=== PATIENT | female | born 1990 | race Caucasian/White ===

== ENCOUNTER 2018-08-05 16:34 | Inpatient (IN) | payer MEDICAID ==
[~2018-08-05] VITALS: Ht 167.6 cm; Wt 120.7 kg
[2018-08-05] MEDS ORDERED: OXYTOCIN 10 UNITS/ML VIAL IM SCH (17:15)
[2018-08-05] MEDS ORDERED: NALBUPHINE 10 MG/ML AMP IVP PRN ×2 (17:15→20:00)
[2018-08-05] MEDS ORDERED: PROMETHAZINE 25 MG/ML VIAL IVP PRN (17:15)
[2018-08-05] MEDS ORDERED: METHYLERGONOVINE 0.2 MG/ML AMP IM PRN (17:15)
[2018-08-05] MEDS ORDERED: CARBOPROST 250 MCG/ML AMP IM PRN (17:15)
[2018-08-05] MEDS ORDERED: VITA1TAB44 PO (17:20)
[2018-08-05] MEDS ORDERED: PREN-380 PO (17:20)
[2018-08-05] MEDS ORDERED: NIFE10SG6 (17:20)
[2018-08-05] MEDS ORDERED: TRA200 PO (17:20)
[2018-08-05] MEDS ORDERED: FERR325E14 PO (17:20)
[2018-08-05 17:31] VITALS: BP 141/86
[2018-08-05 18:11] LABS: BASOPHILS % (AUTO) 0.2 % (0.0-2.0); EOSINOPHILS # (AUTO) 0.1 K/uL (0-0.4); EOSINOPHILS % (AUTO) 1.4 % (0.0-4.0); HEMATOCRIT 32.7 % (36-48); HEMOGLOBIN 11.3 g/dL (12.0-16.0); LYMPHOCYTES # (AUTO) 1.9 K/uL (2.5-16.5); LYMPHOCYTES % (AUTO) 23.9 % (20.5-51.1); MEAN CORPUSCULAR HEMOGLOBIN 31 pg (27-31); MEAN CORPUSCULAR HGB CONC 35 g/dL (33-37); MEAN CORPUSCULAR VOLUME 88.3 fL (80-94); MONOCYTES # (AUTO) 0.7 K/uL (0.8-1.0); MONOCYTES % (AUTO) 8.7 % (1.7-9.3); NEUTROPHILS # (AUTO) 5.3 K/uL (1.8-7.7); NEUTROPHILS % (AUTO) 65.8 % (42.2-75.2); PLATELET COUNT (AUTO) 267 K/uL (140-450)
[2018-08-05 18:15] LABS: APPEARANCE,URINE CLEAR (CLEAR); BILIRUBIN,URINE NEGATIVE (NEGATIVE); BLOOD, URINE NEGATIVE (NEGATIVE); COLOR,URINE YELLOW (YELLOW); LEUKOCYTE ESTERASE ,URINE NEGATIVE (NEGATIVE); NITRITE, URINE NEGATIVE (NEGATIVE); UGLUCOSE NEGATIVE (NEGATIVE)
[2018-08-05 18:33] LABS: ALBUMIN 2.5 g/dL (3.4-5.0); ANION GAP 12.5 (8-16); CARBON DIOXIDE 26.6 mmol/L (21-32); CREATININE 0.5 mg/dL (0.6-1.3); POTASSIUM 4.1 mmol/L (3.5-5.1); TOTAL BILIRUBIN 0.2 mg/dL (0.0-1.0)
[2018-08-05] MEDS: LACTATED RINGERS 1,000 ML IV SCH (19:01)
[2018-08-05] MEDS ORDERED: MISOPROSTOL 25 MCG TAB ONE (19:26)
[2018-08-05] MEDS ORDERED: MISOPROSTOL 25 MCG TAB VG ONE (20:00)
[2018-08-05] MEDS ORDERED: MISOPROSTOL 25 MCG TAB VG SCH (20:00)
[2018-08-05] MEDS: LABETALOL 200 MG TAB PO SCH (20:59)
[2018-08-05] MEDS ORDERED: NIFEdipine 10 MG CAPLF PO SCH (21:00)
[2018-08-05] MEDS ORDERED: LABETALOL 200 MG TAB ONE (21:02)
[2018-08-06] MEDS ORDERED: NIFEdipine 10 MG CAPLF ONE ×3 (01:01→19:17)
[2018-08-06] MEDS: NIFEdipine 10 MG CAPLF PO SCH (03:00)
[2018-08-06] MEDS ORDERED: OXYTOCIN 20 UNITS/LR PREMIX 1,000 ML IV ONE (03:53)
[2018-08-06] MEDS: LACTATED RINGERS 1,000 ML IV SCH ×3 (06:17→21:44)
[2018-08-06] MEDS ORDERED: LABETALOL 200 MG TAB ONE ×2 (09:05→21:03)
[2018-08-06] MEDS ORDERED: NIFEdipine 10 MG CAPLF PO SCH (19:45)
[2018-08-06] MEDS: LABETALOL 200 MG TAB PO SCH (21:01)
[2018-08-06] MEDS ORDERED: MISOPROSTOL 25 MCG TAB ONE (21:02)
[2018-08-07] MEDS: NIFEdipine 10 MG CAPLF PO SCH ×2 (02:07→18:16)
[2018-08-07] MEDS ORDERED: NIFEdipine 10 MG CAPLF ONE ×2 (03:04→18:17)
[2018-08-07] MEDS: OXYTOCIN 20 UNITS in LACTATED RINGERS 1,000 ML IV SCH (03:53)
[2018-08-07] MEDS ORDERED: NALBUPHINE 10 MG/ML AMP ONE (08:14)
[2018-08-07] MEDS ORDERED: PROMETHAZINE 25 MG/ML VIAL ONE (08:14)
[2018-08-07] MEDS ORDERED: LABETALOL 100 MG/20 ML VIAL IV SCH (08:30)
[2018-08-07] MEDS ORDERED: LABETALOL 100 MG/20 ML VIAL ONE (08:37)
[2018-08-07] MEDS ORDERED: ROPIVACAINE 0.2%/NS PREMIX 250 ML EPI ONE (08:51)
--- NOTE | 2018-08-07 09:18 | NUR ---
PATIENT HAS BEEN SCREENED AND CATEGORIZED LOW NUTRITION RISK. PATIENT WILL BE SEEN WITHIN 7 DAYS OF ADMISSION. 08/12/18 BEN PEACE MBA, RD
[2018-08-07] MEDS ORDERED: MAG SULF 2000 MG/WATER PREMIX 100 ML IV ONE (10:25)
[2018-08-07] MEDS: MAGNESIUM SULFATE 4GM in STERILE WATER 100 ML PREMIX IV SCH ×2 (10:45→10:47)
[2018-08-07] MEDS: MAG SULF 20 GM/H2O PREMIX DRIP 500 ML IV SCH ×2 (12:12→22:57)
[2018-08-07] MEDS ORDERED: MAG SULF 20 GM/H2O PREMIX DRIP 500 ML IV ONE ×2 (12:13→22:41)
[2018-08-07] MEDS ORDERED: LIDOCAINE 2% 1000 MG/50 ML VIAL INJ ONE (14:25)
[2018-08-07] MEDS ORDERED: OXYTOCIN 10 UNITS/ML VIAL ONE (14:25)
[2018-08-07] MEDS ORDERED: CARBOPROST 250 MCG/ML AMP IM ONE (15:16)
[2018-08-07] MEDS ORDERED: OXYTOCIN 20 UNITS in LACTATED RINGERS 1,000 ML IV SCH (16:18)
[2018-08-07] MEDS ORDERED: MEASLES, MUMPS, AND RUBELLA 1 VIAL SQVAC PRN (16:20)
[2018-08-07] MEDS ORDERED: BENZOCAINE/MENTHOL 20%-0.5% 60 GM CAN TP PRN (16:20)
[2018-08-07] MEDS ORDERED: ACETAMINOPHEN 325 MG TAB ONE (17:15)
[2018-08-07] MEDS: LABETALOL 200 MG TAB PO SCH (21:04)
[2018-08-07] MEDS ORDERED: LABETALOL 200 MG TAB ONE (21:06)
[2018-08-08] MEDS ORDERED: NIFEdipine 10 MG CAPLF ONE ×2 (02:07→09:02)
[2018-08-08] MEDS ORDERED: OXYTOCIN 20 UNITS/LR PREMIX 1,000 ML IV ONE (05:28)
[2018-08-08] MEDS: OXYTOCIN 20 UNITS in LACTATED RINGERS 1,000 ML IV SCH (07:11)
[2018-08-08 08:41] LABS: BASOPHILS # (AUTO) 0.1 K/uL (0.00-0.22); BASOPHILS % (AUTO) 0.8 % (0.0-2.0); EOSINOPHILS # (AUTO) 0.1 K/uL (0-0.4); EOSINOPHILS % (AUTO) 0.9 % (0.0-4.0); HEMATOCRIT 34.9 % (36-48); HEMOGLOBIN 11.7 g/dL (12.0-16.0); LYMPHOCYTES # (AUTO) 1.6 K/uL (2.5-16.5); LYMPHOCYTES % (AUTO) 14.2 % (20.5-51.1); MEAN CORPUSCULAR HEMOGLOBIN 30 pg (27-31); MEAN CORPUSCULAR HGB CONC 34 g/dL (33-37); MEAN CORPUSCULAR VOLUME 88.7 fL (80-94); MONOCYTES # (AUTO) 0.6 K/uL (0.8-1.0); MONOCYTES % (AUTO) 5.3 % (1.7-9.3); NEUTROPHILS # (AUTO) 8.8 K/uL (1.8-7.7); NEUTROPHILS % (AUTO) 78.8 % (42.2-75.2); PLATELET COUNT (AUTO) 241 K/uL (140-450); RED BLOOD CELL COUNT(AUTO) 3.94 MIL/uL (4.20-5.40); RED CELL DISTRIBUTION WIDTH 15.2 % (11.6-13.7); WHITE BLOOD COUNT (AUTO) 11.2 K/uL (4.8-10.8)
[2018-08-08] MEDS: LABETALOL 200 MG TAB PO SCH ×2 (08:49→20:49)
[2018-08-08] MEDS ORDERED: LABETALOL 200 MG TAB ONE (08:52)
[2018-08-08] MEDS ORDERED: MAG SULF 20 GM/H2O PREMIX DRIP 500 ML IV ONE (08:52)
[2018-08-08] MEDS: MAG SULF 20 GM/H2O PREMIX DRIP 500 ML IV SCH (08:54)
[2018-08-08] MEDS: NIFEdipine 10 MG CAPLF PO SCH ×2 (10:23→18:21)
[2018-08-08] MEDS: DOCUSATE SODIUM 100 MG GELCAP PO PRN (20:49)
[2018-08-09] MEDS: NIFEdipine 10 MG CAPLF PO SCH ×2 (02:24→10:54)
[2018-08-09] MEDS: ACETAMINOPHEN 325 MG TAB PO PRN ×2 (04:43→10:55)
[2018-08-09] MEDS: DOCUSATE SODIUM 100 MG GELCAP PO PRN (09:14)
[2018-08-09] MEDS: LABETALOL 200 MG TAB PO SCH (09:15)
[2018-08-09] MEDS ORDERED: NIFEdipine 10 MG CAPLF ONE (18:38)
== END 2018-08-09 20:00 | disposition home or self-care (01) | DRG 560 ==
LOC: MLD 16:34 → UNDOADMIN 16:34 → MLD 16:35 → MFCC 17:17 → MLD 08-08 15:25 → UNDODISIN 08-09 16:20 → MFCC 08-09 17:17 → UNDOADMIN 08-09 17:17 → UNDODISIN 08-09 20:00
PROVIDERS: ADMIT Obstetrics & Gynecology; ATTEND Obstetrics & Gynecology
PROC: 10E0XZZ Delivery of Products of Conception, External Approach (ICD-10-PCS; principal; 2018-08-07)
PROC: 10907ZC Drainage of Amniotic Fluid, Therapeutic from Products of Conception, Via Natural or Artificial Opening (ICD-10-PCS; 2018-08-07)
PROC: 0UQMXZZ Repair Vulva, External Approach (ICD-10-PCS; 2018-08-07)
PROC: 00HU33Z Insertion of Infusion Device into Spinal Canal, Percutaneous Approach (ICD-10-PCS; 2018-08-07)
PROC: 3E0R3BZ Introduction of Anesthetic Agent into Spinal Canal, Percutaneous Approach (ICD-10-PCS; 2018-08-07)
PROC: 3E0234Z Introduction of Serum, Toxoid and Vaccine into Muscle, Percutaneous Approach (ICD-10-PCS; 2018-08-09)
PROC: 3E0234Z Introduction of Serum, Toxoid and Vaccine into Muscle, Percutaneous Approach (ICD-10-PCS; 2018-08-09)
DX: O11.4 Pre-existing hypertension with pre-eclampsia, complicating childbirth (principal); O69.89X0 Labor and delivery complicated by other cord complications, not applicable or unspecified; Z37.0 Single live birth; O10.92 Unspecified pre-existing hypertension complicating childbirth; O71.82 Other specified trauma to perineum and vulva; Z3A.39 39 weeks gestation of pregnancy; Z23 Encounter for immunization
CPT/HCPCS: 36415; 51702; 59200; 59409; 76805; 80053; 81003; 83735; 85025; 86592; 86886; 86900; 86901; 90707; 90715; J2001; J2300; J2550; J2590; J2795; J3475; J3490; J7120; Q0092

== ENCOUNTER 2019-09-04 18:00 | Inpatient (IN) | payer OTHER ==
[~2019-09-04] VITALS: Ht 167.6 cm; Wt 119.7 kg
[~2019-09-04 18:00] MED LIST: FERR325E14 PO; PREN-380 PO; VITA1TAB44 PO
[2019-09-04] MEDS ORDERED: diphenhydrAMINE 50 MG CAP PO SCH (20:40)
[2019-09-04 20:43] VITALS: BP 138/87
[2019-09-04] MEDS ORDERED: diphenhydrAMINE 50 MG CAP PO ONE (22:53)
--- NOTE | 2019-09-05 08:23 | NUR ---
PATIENT HAS BEEN SCREENED AND CATEGORIZED LOW NUTRITION RISK. PATIENT WILL BE SEEN WITHIN 7 DAYS OF ADMISSION. 09/11/[address]
[2019-09-05] MEDS ORDERED: FAMOTIDINE 20 MG TAB PO SCH (10:26)
[2019-09-05] MEDS ORDERED: LABETALOL 100 MG TAB PO SCH ×2 (12:26→21:00)
[2019-09-05] MEDS ORDERED: LABETALOL 100 MG TAB ONE ×2 (12:38→13:30)
[2019-09-05] MEDS ORDERED: ACETAMINOPHEN 325 MG TAB PO PRN (21:10)
[2019-09-05] MEDS ORDERED: ACETAMINOPHEN 325 MG TAB ONE (21:16)
[2019-09-06] MEDS ORDERED: BETAMETH ACET/BETAMETH NA PH 30 MG/5 ML VIAL IM ONE ×2 (02:22→15:10)
[2019-09-06] MEDS ORDERED: BETAMETH ACET/BETAMETH NA PH 30 MG/5 ML VIAL IM SCH (03:00)
[2019-09-06 06:46] VITALS: BP 122/73
[2019-09-06] MEDS ORDERED: LABETALOL 100 MG TAB PO SCH (09:00)
[2019-09-06] MEDS ORDERED: FAMOTIDINE 20 MG TAB PO SCH (09:00)
[2019-09-06] MEDS ORDERED: LABETALOL 200 MG TAB ONE ×2 (09:38→21:01)
[2019-09-06] MEDS: LABETALOL 200 MG TAB PO SCH ×2 (09:47→21:07)
[2019-09-06] MEDS: LEVOTHYROXINE 0.075 MG TAB PO SCH (10:13)
[2019-09-06] MEDS ORDERED: SODIUM PHOSPHATE 118 ML ENEM RC PRN (13:55)
[2019-09-07] MEDS ORDERED: LEVOTHYROXINE 0.075 MG TAB PO SCH (06:30)
[2019-09-07 07:30] VITALS: BP 132/75
[2019-09-07] MEDS: LEVOTHYROXINE 0.075 MG TAB PO SCH (07:50)
[2019-09-07] MEDS ORDERED: LABETALOL 200 MG TAB ONE ×2 (09:08→21:12)
[2019-09-07] MEDS: FAMOTIDINE 20 MG TAB PO SCH (09:14)
[2019-09-07] MEDS: LABETALOL 200 MG TAB PO SCH ×2 (09:15→21:14)
[2019-09-07] MEDS ORDERED: LACTATED RINGERS 1,000 ML IV SCH (15:58)
[2019-09-07] MEDS ORDERED: OXYTOCIN 20 UNITS in LACTATED RINGERS 1,000 ML IV SCH (15:58)
[2019-09-07] MEDS ORDERED: MISOPROSTOL 25 MCG TAB VG SCH (16:13)
[2019-09-07 16:59] LABS: BASOPHILS % (AUTO) 0.1 % (0.0-2.0); EOSINOPHILS % (AUTO) 0.1 % (0.0-4.0); HEMATOCRIT 31.9 % (36-48); HEMOGLOBIN 10.9 g/dL (12.0-16.0); LYMPHOCYTES # (AUTO) 1.9 K/uL (2.5-16.5); LYMPHOCYTES % (AUTO) 17.4 % (20.5-51.1); MEAN CORPUSCULAR HEMOGLOBIN 31 pg (27-31); MEAN CORPUSCULAR HGB CONC 34 g/dL (33-37); MEAN CORPUSCULAR VOLUME 90.9 fL (80-94); MONOCYTES # (AUTO) 0.7 K/uL (0.8-1.0); MONOCYTES % (AUTO) 6.8 % (1.7-9.3); NEUTROPHILS % (AUTO) 75.6 % (42.2-75.2); PLATELET COUNT (AUTO) 231 K/uL (140-450); RED CELL DISTRIBUTION WIDTH 14.6 % (11.6-13.7); WHITE BLOOD COUNT (AUTO) 10.6 K/uL (4.8-10.8)
[2019-09-07 17:45] LABS: ALBUMIN 2.4 g/dL (3.4-5.0); ANION GAP 13.5 (8-16); CARBON DIOXIDE 23.3 mmol/L (21-32); CREATININE 0.5 mg/dL (0.6-1.3); POTASSIUM 3.8 mmol/L (3.5-5.1); TOTAL BILIRUBIN 0.2 mg/dL (0.0-1.0)
[2019-09-07 19:18] LABS: APPEARANCE,URINE CLEAR (CLEAR); BILIRUBIN,URINE NEGATIVE (NEGATIVE); BLOOD, URINE NEGATIVE (NEGATIVE); COLOR,URINE YELLOW (YELLOW); LEUKOCYTE ESTERASE ,URINE NEGATIVE (NEGATIVE); NITRITE, URINE NEGATIVE (NEGATIVE); UGLUCOSE NEGATIVE (NEGATIVE)
[2019-09-07] MEDS ORDERED: MISOPROSTOL 25 MCG TAB ONE (19:21)
[2019-09-08] MEDS ORDERED: NALBUPHINE 10 MG/ML AMP ONE ×3 (00:45→07:58)
[2019-09-08] MEDS: NALBUPHINE 10 MG/ML AMP IVP PRN ×3 (00:48→08:06)
[2019-09-08] MEDS ORDERED: OXYTOCIN 20 UNITS/LR PREMIX 2,000 ML IV ONE (03:52)
[2019-09-08] MEDS: LEVOTHYROXINE 0.075 MG TAB PO SCH (06:30)
[2019-09-08] MEDS ORDERED: ROPIVACAINE 0.2%/NS PREMIX 100 ML EPI ONE (07:31)
[2019-09-08] MEDS ORDERED: OXYTOCIN 10 UNITS/ML VIAL ONE (07:40)
[2019-09-08] MEDS ORDERED: LIDOCAINE 1% 500 MG/50 ML VIAL ONE (07:44)
[2019-09-08] MEDS: MAG SULF 2000 MG/WATER PREMIX 100 ML IV SCH ×2 (08:00→09:02)
[2019-09-08] MEDS ORDERED: MAG SULF 20 GM/H2O PREMIX DRIP 500 ML IV SCH (08:00)
[2019-09-08] MEDS ORDERED: LABETALOL 100 MG/20 ML VIAL IV PRN (08:20)
[2019-09-08] MEDS ORDERED: LABETALOL 100 MG/20 ML VIAL ONE (08:29)
[2019-09-08] MEDS ORDERED: NALOXONE 0.4 MG/ML VIAL ONE (08:48)
[2019-09-08] MEDS ORDERED: MAG SULF 20 GM/H2O PREMIX DRIP 500 ML IV ONE (08:56)
[2019-09-08] MEDS ORDERED: LABETALOL 200 MG TAB ONE ×2 (09:06→21:08)
[2019-09-08] MEDS ORDERED: OXYTOCIN 20 UNITS in LACTATED RINGERS 1,000 ML IV SCH (09:18)
[2019-09-08] MEDS ORDERED: BISACODYL 5 MG TABEC PO PRN (09:20)
[2019-09-08] MEDS ORDERED: DOCUSATE SODIUM 100 MG GELCAP PO PRN (09:20)
[2019-09-08] MEDS ORDERED: MEASLES, MUMPS, AND RUBELLA 1 VIAL SQVAC PRN (09:20)
[2019-09-08] MEDS ORDERED: ACETAMINOPHEN 325 MG TAB PO PRN (09:20)
[2019-09-08] MEDS: FAMOTIDINE 20 MG TAB PO SCH (09:26)
[2019-09-08] MEDS: IBUPROFEN 600 MG TAB PO PRN (15:10)
[2019-09-08] MEDS ORDERED: LABETALOL 200 MG TAB PO SCH (21:00)
[2019-09-08] MEDS: LABETALOL 200 MG TAB PO SCH (21:11)
[2019-09-09] MEDS: IBUPROFEN 600 MG TAB PO PRN (02:55)
[2019-09-09] MEDS ORDERED: LEVOTHYROXINE 0.075 MG TAB PO SCH (06:30)
[2019-09-09] MEDS: LEVOTHYROXINE 0.075 MG TAB PO SCH (08:06)
[2019-09-09 08:44] LABS: BASOPHILS % (AUTO) 0.4 % (0.0-2.0); EOSINOPHILS # (AUTO) 0.1 K/uL (0-0.4); EOSINOPHILS % (AUTO) 1.2 % (0.0-4.0); HEMATOCRIT 32.9 % (36-48); HEMOGLOBIN 11.1 g/dL (12.0-16.0); LYMPHOCYTES # (AUTO) 2.3 K/uL (2.5-16.5); MEAN CORPUSCULAR HEMOGLOBIN 31 pg (27-31); MEAN CORPUSCULAR HGB CONC 34 g/dL (33-37); MEAN CORPUSCULAR VOLUME 91.2 fL (80-94); MONOCYTES # (AUTO) 0.6 K/uL (0.8-1.0); MONOCYTES % (AUTO) 6.8 % (1.7-9.3); NEUTROPHILS # (AUTO) 6.1 K/uL (1.8-7.7); NEUTROPHILS % (AUTO) 66.6 % (42.2-75.2); PLATELET COUNT (AUTO) 233 K/uL (140-450); RED BLOOD CELL COUNT(AUTO) 3.61 MIL/uL (4.20-5.40); RED CELL DISTRIBUTION WIDTH 14.8 % (11.6-13.7); WHITE BLOOD COUNT (AUTO) 9.2 K/uL (4.8-10.8)
[2019-09-09] MEDS: LABETALOL 200 MG TAB PO SCH ×3 (09:00→21:43)
[2019-09-09] MEDS ORDERED: LABETALOL 200 MG TAB ONE (09:19)
[2019-09-09] MEDS: FAMOTIDINE 20 MG TAB PO SCH (09:22)
[2019-09-09] MEDS ORDERED: INFLUENZA VACCINE QUAD 0.5 ML SYR IMVAC ONE (21:36)
[2019-09-09] MEDS ORDERED: INFLUENZA VACCINE QUAD 0.5 ML SYR IMVAC PRN (21:45)
[2019-09-10] MEDS: LEVOTHYROXINE 0.075 MG TAB PO SCH (08:54)
[2019-09-10] MEDS: FAMOTIDINE 20 MG TAB PO SCH (08:55)
[2019-09-10] MEDS ORDERED: ACET-9800 PO (13:55)
[2019-09-10] MEDS ORDERED: TRA200 PO (13:58)
== END 2019-09-10 15:30 | disposition home or self-care (01) | DRG 560 ==
LOC: MLD 18:00 → MFCC 09-06 14:08 → OBSVTOIN 09-07 08:54 → MLD 09-07 18:02 → MFCC 09-09 20:47
PROVIDERS: ADMIT Obstetrics & Gynecology; ATTEND Obstetrics & Gynecology
PROC: 10E0XZZ Delivery of Products of Conception, External Approach (ICD-10-PCS; principal; 2019-09-08)
PROC: 3E0134Z Introduction of Serum, Toxoid and Vaccine into Subcutaneous Tissue, Percutaneous Approach (ICD-10-PCS; 2019-09-08)
PROC: 10907ZC Drainage of Amniotic Fluid, Therapeutic from Products of Conception, Via Natural or Artificial Opening (ICD-10-PCS; 2019-09-08)
PROC: 3E02340 Introduction of Influenza Vaccine into Muscle, Percutaneous Approach (ICD-10-PCS; 2019-09-09)
DX: O99.284 Endocrine, nutritional and metabolic diseases complicating childbirth (principal); E03.9 Hypothyroidism, unspecified; Z3A.36 36 weeks gestation of pregnancy; Z37.0 Single live birth; Z88.8 Allergy status to other drugs, medicaments and biological substances; Z23 Encounter for immunization
CPT/HCPCS: G0378 ×63; 36415; 51702; 59200; 59409; 76815; 80053; 81003; 83735; 85025; 86592; 86886; 86900; 86901; 87086; C1758; J0702; J2001; J2300; J2310; J2590; J2795; J3475; J3490; J7120; Q0092; Q0163